=== PATIENT | female | born 1995 | race Caucasian/White ===

== ENCOUNTER 2016-12-31 16:59 | Emergency (ER) | payer MEDICAID ==
[2016-12-31] MEDS ORDERED: LIDOCAINE 1% MDV 20 ML ONE (19:58)
[2016-12-31] MEDS ORDERED: CEFTRIAXONE 1 GM VIAL ONE (19:58)
== END 2016-12-31 20:30 | disposition home or self-care (01) ==
LOC: ER 16:59
DX: O98.311 Other infections with a predominantly sexual mode of transmission complicating pregnancy, first trimester (principal); A59.01 Trichomonal vulvovaginitis; O23.41 Unspecified infection of urinary tract in pregnancy, first trimester; Z3A.12 12 weeks gestation of pregnancy; Z20.2 Contact with and (suspected) exposure to infections with a predominantly sexual mode of transmission
CPT/HCPCS: 36415; 80053; 81001; 83690; 84702; 84703; 85025; 87077; 87088; 87186; 87255; 87491; 87591; 87800; 96372